=== PATIENT | female | born 2000 | race Caucasian/White ===

== ENCOUNTER 2020-08-12 06:46 | Emergency (ER) | payer OTHER ==
[~2020-08-12] VITALS: Ht 167.6 cm; Wt 55.8 kg
[2020-08-12] MEDS ORDERED: CEPHALEXIN500 MG PO (07:52)
== END 2020-08-12 08:10 | disposition home or self-care (01) ==
LOC: ED 06:46
DX: N30.91 Cystitis, unspecified with hematuria (principal); F17.200 Nicotine dependence, unspecified, uncomplicated; Z88.2 Allergy status to sulfonamides
CPT/HCPCS: 81001; 84703; 99283